=== PATIENT | male | born 1965 | race American Indian/Alaskan Native ===

== ENCOUNTER 2018-11-30 08:49 | Emergency (ER) | payer BC ==
[2018-11-30] MEDS ORDERED: TORADOL IM ONE (09:38)
--- NOTE | 2018-11-30 09:57 | Emergency Department Report ---
ED Back Pain/Injury HPI - General Chief Complaint: Extremity Problem,Nontraumatic Stated Complaint: BACK/HIP PAIN Time Seen by Provider: 11/30/18 09:28 Source: patient Limitations: No Limitations - History of Present Illness Initial Comments: Patient is a 55-year-old Male who is presenting with left low back pain. Patient's had chronic back pain off and on since early 2016. Patient denies any new injury or trauma. Based is aching sensation starting in the left back area radiating down through the left hip into his left posterior thigh. Patient denies any leg swelling. Patient denies any bowel or bladder dysfunction fevers chills nausea vomiting at this time. Severity scale (0 -10): 6 Quality: aching - Related Data Previous Rx's Medication Instructions Recorded Last Taken Type Ketorolac [Toradol] 10 mg PO Q6H PRN #20 tablet 11/30/18 Unknown Rx methOCARBAMOL [Robaxin TAB] 500 mg PO Q6H PRN #15 tablet 11/30/18 Unknown Rx traMADol [Ultram] 50 mg PO Q6HR PRN #10 tablet 11/30/18 Unknown Rx Allergies Allergy/AdvReac Type Severity Reaction Status Date / Time No Known Allergies Allergy Unverified 11/30/18 08:51 ED Review of Systems ROS: Stated complaint: BACK/HIP PAIN Other details as noted in HPI Comment: All other systems reviewed and negative ED Back Pain Physical Exam - Exam General: Vital signs noted. No distress. Alert and acting appropriately. Back/Abdomen: Yes Perilumbar Tenderness (left), No Abdominal Tenderness, No Perithoracic Tenderness, No Sacroiliac Tenderness, No Flank Tenderness, No Straight Leg Raise Pain Neuro: Yes Normal Sensation, Yes Normal DTR's, Yes Normal Gait, No Motor Weakness ED Course Vital Signs 11/30/18 08:52 Temperature 97.7 F Pulse Rate 102 H Blood Pressure 113/69 O2 Sat by Pulse 98 Oximetry Critical care attestation.: If time is entered above; I have spent that time in minutes in the direct care of this critically ill patient, excluding procedure time. ED Disposition Clinical Impression: Chronic back pain Qualifiers: Back pain location: low back pain Back pain laterality: left Sciatica presence: with sciatica Sciatica laterality: sciatica of left side Qualified Code(s): M54.42 - Lumbago with sciatica, left side; G89.29 - Other chronic pain Disposition: DC-01 TO HOME OR SELFCARE Is pt being admited?: No Does the pt Need Aspirin: No Condition: Stable Instructions: Lumbar Radiculopathy (ED) Referrals: YAHAIRA SMITH MD [Staff Physician] - 3-5 Days Time of Disposition: 09:57
[2018-11-30 10:29] VITALS: BP 118/75
== END 2018-11-30 10:26 | disposition home or self-care (01) ==
LOC: EDBD 08:49 → ED 08:49
DX: M54.42 Lumbago with sciatica, left side (principal); G89.29 Other chronic pain
CPT/HCPCS: 96372; 99282; J1885

== ENCOUNTER 2022-05-26 16:02 | Emergency (ER) | payer BC, MEDICARE ==
[2022-05-26 16:36] VITALS: BP 119/83
[2022-05-26] MEDS ORDERED: KETOROLAC 30 MG/1 ML INJ IM ONE (21:01)
[2022-05-26] MEDS ORDERED: dexAMETHasone 20 MG/5 ML VIAL IM ONE (21:01)
--- NOTE | 2022-05-26 21:01 | Emergency Department Report ---
ED General Adult HPI - General Chief complaint: Extremity Problem,Nontraumatic Stated complaint: PAIN IN LEFT HIP TO LEG Time Seen by Provider: 05/26/22 20:57 Source: patient Mode of arrival: Ambulatory Limitations: No Limitations - History of Present Illness Initial comments: Patient 57-year-old male with history of low back pain who presents for [facility] low back pain with tingling and burning to left lower extremity. Patient denies loss or decrease in bowel or bladder function however pain is exacerbated to 7/10 with activity bending and reaching. Patient denies new fall injury or trauma. Symptom's are relieved by nothing tried. Patient has history of laminectomy lumbar. Patient denies other complaint. He denies dysuria frequency or urgency no hematuria. Severity scale (0 -10): 10 - Related Data Previous Rx's Medication Instructions Recorded Last Taken Type Ketorolac [Toradol] 10 mg PO Q6H PRN #20 tablet 11/30/18 Unknown Rx methOCARBAMOL [Robaxin TAB] 500 mg PO Q6H PRN #15 tablet 11/30/18 Unknown Rx traMADoL [Ultram] 50 mg PO Q6HR PRN #10 tablet 11/30/18 Unknown Rx Cyclobenzaprine [Flexeril] 10 mg PO TID PRN #30 tab 05/26/22 Unknown Rx Menthol/Camphor [[place] 1 applicatio TP BID PRN #1 tube 05/26/22 Unknown Rx Ointment] Naproxen 500 mg PO BID PRN #30 tab 05/26/22 Unknown Rx Allergies Allergy/AdvReac Type Severity Reaction Status Date / Time No Known Allergies Allergy Verified 05/26/22 16:36 ED Review of Systems ROS: Stated complaint: PAIN IN LEFT HIP TO LEG Other details as noted in HPI Constitutional: denies: chills, fever Eyes: denies: eye pain, eye discharge, vision change ENT: denies: ear pain, throat pain Respiratory: denies: cough, shortness of breath, wheezing Cardiovascular: denies: chest pain, palpitations Endocrine: no symptoms reported Gastrointestinal: denies: abdominal pain, nausea, diarrhea Genitourinary: denies: urgency, dysuria Musculoskeletal: as per HPI, myalgia Skin: denies: rash, lesions Neurological: denies: headache, weakness, paresthesias, vertigo Psychiatric: denies: anxiety, depression Hematological/Lymphatic: denies: easy bleeding, easy bruising ED Past Medical Hx - Past Medical History Hx Hypertension: Yes - Surgical History Past Surgical History?: Yes Additional Surgical History: Lumbar laminectomy - Social History Smoking Status: Current Every Day Smoker Substance Use Type: None - Medications Home Medications: Home Medications Medication Instructions Recorded Confirmed Last Taken Type Ketorolac [Toradol] 10 mg PO Q6H PRN #20 tablet 11/30/18 Unknown Rx methOCARBAMOL [Robaxin TAB] 500 mg PO Q6H PRN #15 tablet 11/30/18 Unknown Rx traMADoL [Ultram] 50 mg PO Q6HR PRN #10 tablet 11/30/18 Unknown Rx Cyclobenzaprine [Flexeril] 10 mg PO TID PRN #30 tab 05/26/22 Unknown Rx Menthol/Camphor [[place] 1 applicatio TP BID PRN #1 tube 05/26/22 Unknown Rx Ointment] Naproxen 500 mg PO BID PRN #30 tab 05/26/22 Unknown Rx ED Physical Exam - General Limitations: No Limitations General appearance: alert, in no apparent distress - Head Head exam: Present: normocephalic, normal inspection - Eye Eye exam: Present: EOMI Pupils: Present: normal accommodation - ENT ENT exam: Present: mucous membranes moist - Neck Neck exam: Present: normal inspection, full ROM. Absent: tenderness, meningismus, lymphadenopathy - Respiratory Respiratory exam: Present: normal lung sounds bilaterally. Absent: respiratory distress, wheezes - Cardiovascular Cardiovascular Exam: Present: regular rate, normal rhythm, normal heart sounds. Absent: systolic murmur, diastolic murmur, rubs, gallop - GI/Abdominal GI/Abdominal exam: Present: soft, normal bowel sounds. Absent: distended, tenderness, bruit, hernia - Rectal Rectal exam: Present: deferred - Extremities Exam Extremities exam: Present: normal inspection, full ROM. Absent: tenderness - Back Exam Back exam: Present: normal inspection, full ROM, muscle spasm, paraspinal tenderness. Absent: vertebral tenderness - Expanded Back Exam Expanded Back exam: Absent: saddle anesthesia Back exam: Positive Straight Leg Raise: Left - Neurological Exam Neurological exam: Present: alert, oriented X3, CN II-XII intact, reflexes normal. Absent: motor sensory deficit - Expanded Neurological Exam Expanded Patient oriented to: Present: person, place, time Speech: Present: fluid speech Motor strength exam: RUE: 5, LUE: 5, RLE: 5, LLE: 5 DTR: knee (R): 1+, knee (L): 1+ Best Eye Response ([place]): (4) open spontaneously Best Motor Response ([place]): (6) obeys commands Best Verbal Response ([place]): (5) oriented [place] Total: 15 - Psychiatric Psychiatric exam: Present: normal affect, normal mood - Skin Skin exam: Present: warm, dry, intact, normal color. Absent: rash ED Course Vital Signs 05/26/22 16:33 Temperature 98.2 F Pulse Rate 81 Respiratory 18 Rate Blood Pressure 119/83 [Right] O2 Sat by Pulse 99 Oximetry ED Medical Decision Making - Medical Decision Making Pain is improved with medications given in ED plan DC to home, moist heat therapy, back exercises as directed, follow-up with orthopedics as directed. Return to emergency department should symptoms worsen. Patient verbalized agreement and understanding of discharge plan. Patient DC'd home in stable condition at this time patient is currently alert oriented x3 amatory with steady gait. Critical care attestation.: If time is entered above; I have spent that time in minutes in the direct care of this critically ill patient, excluding procedure time. ED Disposition Clinical Impression: Low back strain Qualifiers: Encounter type: initial encounter Qualified Code(s): S39.012A - Strain of muscle, fascia and tendon of lower back, initial encounter Disposition: HOME / SELF CARE / HOMELESS Is pt being admited?: No Does the pt Need Aspirin: No Condition: Stable Instructions: Low Back Sprain or Strain Rehab-SportsMed Additional Instructions: Take medications as prescribed, use moist heat therapy as directed. Follow-up with your primary care doctor in 2 to 3 days. Prescriptions: Cyclobenzaprine [Flexeril] 10 mg PO TID PRN #30 tab PRN Reason: Muscle Spasm Naproxen 500 mg PO BID PRN #30 tab PRN Reason: Pain Menthol/Camphor [[place] Ointment] 1 applicatio TP BID PRN #1 tube PRN Reason: pain Referrals: ROSHAN LAUREN MD [Staff Physician] - 3-5 Days YAHAIRA SMITH MD [Staff Physician] - 3-5 Days Forms: Work/School Release Form(ED) Time of Disposition: 22:15
== END 2022-05-26 22:53 | disposition home or self-care (01) ==
LOC: ED 16:02
DX: S39.012A Strain of muscle, fascia and tendon of lower back, initial encounter (principal); I10 Essential (primary) hypertension; F17.200 Nicotine dependence, unspecified, uncomplicated; X58.XXXA Exposure to other specified factors, initial encounter; Y93.89 Activity, other specified; Y92.89 Other specified places as the place of occurrence of the external cause; Y99.8 Other external cause status
CPT/HCPCS: 96372; 99282; J1100; J1885